=== PATIENT | male | born 1990 | race Caucasian/White ===

== ENCOUNTER 2017-01-14 15:15 | Emergency (ER) | payer MEDICAID, OTHER ==
[~2017-01-14] VITALS: Ht 182.9 cm; Wt 104.3 kg
[~2017-01-14 15:15] MED LIST: AURALGAN OTIC S14 ML OT; BENAZEPRIL HCL5 MG PO; CORTISPORIN EAR10 M1 LEFT EAR; IBUPROFEN600 MG ORAL; NIFEDIPINE20 MG PO; NORCO 5-325 TA1 EACH ORAL; PREVACID30 MG ORAL; PRILOSEC10 M1 ORAL; ZOFRAN4 MG ORAL
[2017-01-14 15:59] VITALS: BP 136/73
[2017-01-14] MEDS ORDERED: Norco 5mg/325mg tab ORAL ONE (16:15)
--- NOTE | 2017-01-14 16:49 | Diagnostic Imaging Report ---
Indication: Neck and back pain, status post fall down stairs Technique: Spiral acquisitions obtained through the thoracic spine. No IV contrast utilized. Multiplanar reconstructions were generated. Total dose length product 1620 mGycm. CTDIvol(s) 37 mGy. Dose reduction achieved using automated exposure control Comparison: None Findings: Bony alignment is normal. No acute fractures. No dislocations. Vertebral body heights are preserved. The disc spaces are preserved. No significant disc bulge or protrusion, spinal stenosis, or neural foraminal stenosis is demonstrated. The included extraspinal soft tissues are unremarkable. Impression: Negative The CT scanner at [facility] is accredited by the [employer] and the scans are performed using protocols designed to limit radiation exposure to as low as reasonably achievable to attain images of sufficient resolution adequate for diagnostic evaluation.
--- NOTE | 2017-01-14 16:55 | Diagnostic Imaging Report ---
Indication: PAIN neck and back pain status post fall down stairs today Technique: Spiral acquisitions obtained through the cervical spine. No IV contrast utilized. Multiplanar reconstructions were generated. Total dose length product 642 mGycm. CTDIvol(s) 27 mGy. Dose reduction achieved using automated exposure control Comparison: None Findings: Bony alignment is normal. Image noise from photon starvation artifact related to body habitus obscures C7 and T1, although these segments are better demonstrated on thoracic spine CT performed at the same time. The bony alignment is normal are the vertebral body heights are preserved. Disc spaces are preserved. No acute fractures. No dislocations. Vertebral body heights are preserved. Disc spaces are preserved. There is mild degenerative remodeling of the C6 vertebral body. No significant disc bulge or protrusion, spinal stenosis, or neural foraminal stenosis. The included extraspinal soft tissues are unremarkable. Impression: No acute bony trauma Minimal degenerative changes, as described The CT scanner at [facility] is accredited by the [employer] and the scans are performed using protocols designed to limit radiation exposure to as low as reasonably achievable to attain images of sufficient resolution adequate for diagnostic evaluation.
[2017-01-14] MEDS ORDERED: IBUPROFEN600 MG ORAL (17:25)
[2017-01-14] MEDS ORDERED: Morphine Sulfate 4mg/ml Inj IM ONE (17:30)
[2017-01-14 17:45] VITALS: BP 136/73
--- NOTE | 2017-01-14 19:46 | Emergency Room Report ---
History of Present Illness General Chief Complaint: Back Injury Source: Patient Present Illness HPI The patient is a 26-year-old male presenting for back pain after he states he fell down the stairs today. He states that he slipped and fell directly onto the mid back. He is now expressing a 10 out of 10 dull ache to the neck and mid back. Worse with movement. He denies any numbness or tingling. He denies any other symptoms including LOC, N, V, ROJAS, dizziness Allergies: Coded Allergies: Dust (Verified Allergy, Mild, Itching, 01/14/17) IBUPROFEN (Verified Allergy, Unknown, 01/14/17) Patient History Past Medical History: see triage record Pertinent Family History: none Reviewed Nursing Documentation: PMH: Agreed, PSxH: Agreed Nursing Documentation-PMH Past Medical History: No History, Except For Hx Hypertension: Yes Hx Gastrointestinal Problems: Yes - GASTRIC BYPASS (2012) Review of Systems All Other Systems: negative except mentioned in HPI Physical Exam Vital Signs Date Time Temp Pulse Resp B/P (MAP) Pulse Ox O2 Delivery O2 Flow Rate FiO2 01/14/17 15:59 97.7 109 16 136/73 96 Room Air Sp02 EP Interpretation: reviewed, normal General Appearance: no apparent distress, alert, GCS 15, non-toxic Head: normocephalic, atraumatic Eyes: bilateral eye normal inspection, bilateral eye PERRL ENT: hearing grossly normal, normal pharynx, no angioedema, normal voice Neck: full range of motion, supple/symm/no masses, tender lateral, tender midline Respiratory: chest non-tender, lungs clear, normal breath sounds, speaking full sentences Cardiovascular #1: regular rate, rhythm, no edema Musculoskeletal: back normal, gait/station normal, normal range of motion, tender - Midline T spine. No step-offs Neurologic: alert, oriented x3, responsive, motor strength/tone normal, sensory intact, speech normal Psychiatric: judgement/insight normal, memory normal, mood/affect normal, no suicidal/homicidal ideation Skin: normal color, no rash, warm/dry, well hydrated Medical Decision Making PA Attestation Dr. Aguilar is my supervising physician. Patient management was discussed with my supervising physician Diagnostic Impression: Primary Impression: Back pain Qualified Codes: M54.9 - Dorsalgia, unspecified ER Course The patient is a 26-year-old male presenting for back pain after he states he fell down the stairs Differential diagnoses considered but not limited to:Muscle strain, disc herniation, fracture PE: NAD TTP over midline C and T spine. No step-offs. Normal gait CT scan of C and T spine unremarkable. CURES shows patient has received 80 narcotic pain medications this month. He is given pain medication in the ER and WA'ed home. he needs to see pain management. CT/MRI/US Diagnostic Results CT/MRI/US Diagnostic Results #1: Imaging Test Ordered: CT C SPINE Impression Unremarkable CT/MRI/US Diagnostic Results #2: Imaging Test Ordered: CT T SPINE Impression Unremarkable Last Vital Signs Date Time Temp Pulse Resp B/P (MAP) Pulse Ox O2 Delivery O2 Flow Rate FiO2 01/14/17 17:45 97.7 101 20 136/73 99 Room Air Status: improved Disposition: HOME, SELF-CARE Condition: Improved Scripts Ibuprofen* (MOTRIN*) 600 Mg Tablet 600 MG ORAL Q8H Y for For Pain, #30 TAB 0 Refills Prov: POLO CORDERO 01/14/17 Patient Instructions: Back Pain, Adult Additional Instructions: I discussed my findings with the patient. All questions and concerns have been answered. Treatment and medication compliance have been addressed. I advised the patient that they need to follow up with PMD in 3-5 days. Return to ED if symptoms worsen, new symptoms arise, or if needed for any reason. Patient verbalized understanding of discharge instructions. POLO CORDERO Jan 14, 2017 19:46
== END 2017-01-14 17:45 | disposition home or self-care (01) ==
LOC: EMR 16:00
DX: M54.9 Dorsalgia, unspecified (principal); I10 Essential (primary) hypertension; Z98.84 Bariatric surgery status; Z88.6 Allergy status to analgesic agent; Z91.048 Other nonmedicinal substance allergy status
CPT/HCPCS: 72125; 72128; 96372; 99284; J2270

== ENCOUNTER 2017-03-12 20:26 | Emergency (ER) | payer BC, MEDICAID ==
[~2017-03-12] VITALS: Ht 182.9 cm; Wt 104.3 kg
[2017-03-12 21:12] VITALS: BP 136/64
[2017-03-12 21:16] LABS: MEAN CORPUSCULAR HEMOGLOBIN 29.2 PG (27.0-31.0); MEAN CORPUSCULAR HGB CONC 31.2 G/DL (32.0-36.0); MEAN CORPUSCULAR VOLUME 93 FL (80-99); MEAN PLATELET VOLUME 6.9 FL (6.5-10.1); PLATELET COUNT 265 K/UL (150-450); RED BLOOD COUNT 5.23 M/UL (4.70-6.10); RED CELL DISTRIBUTION WIDTH 11.7 % (11.6-14.8)
[2017-03-12 21:30] LABS: ANION GAP 9 mmol/L (5-15); CALCIUM 8.1 MG/DL (8.5-10.1); CARBON DIOXIDE 29 MMOL/L (21-32); CHLORIDE 104 MMOL/L (98-107); CREATININE 0.9 MG/DL (0.55-1.30); GLOMERULAR FILTRATION RATE > 60 mL/min (>60); POTASSIUM 4.6 MMOL/L (3.5-5.1); SODIUM 142 MMOL/L (136-145)
[2017-03-12 21:42] LABS: ACETAMINOPHEN < 2 MCG/ML (10-30); ALANINE AMINOTRANSFERASE 61 U/L (12-78); ALBUMIN/GLOBULIN RATIO 1.1 (1.0-2.7); ALCOHOL 422 mg/dL; ASPARTATE AMINO TRANSFERASE 38 U/L (15-37); TOTAL PROTEIN 8.5 G/DL (6.4-8.2)
--- NOTE | 2017-03-12 21:50 | Emergency Room Report ---
History of Present Illness General Chief Complaint: General Complaint Source: Patient, Family Member Present Illness HPI 26-year-old male brought to ER for alcohol intoxication and suicidal ideation mOther states he has been seeing psychiatrist for 2 years - on clonazepam, Ambien, and Paxil for psychiatric problems has psychiatric followup tomorrow Drank 4 bottles of wine today, no other drug use Has intermittently expressed SI for last 2 years However today, speaking of magic spells being cast on his family, neighbors, springled salt around the house HPI otherwise limited d/t intox Allergies: Coded Allergies: Dust (Verified Allergy, Mild, Itching, 01/14/17) IBUPROFEN (Verified Allergy, Unknown, 01/14/17) Patient History Past Medical History: HTN Past Surgical History: other - gastric bypass, PUD Pertinent Family History: none Social History: Denies: smoking, alcohol use, drug use Immunizations: UTD Reviewed Nursing Documentation: PMH: Agreed, PSxH: Agreed Nursing Documentation-PMH Hx Hypertension: Yes Hx Gastrointestinal Problems: Yes - GASTRIC BYPASS (2012) History Of Psychiatric Problem: Yes - ADHD Review of Systems All Other Systems: negative except mentioned in HPI Physical Exam Vital Signs Date Time Temp Pulse Resp B/P (MAP) Pulse Ox O2 Delivery O2 Flow Rate FiO2 03/12/17 20:20 98.2 94 14 153/84 96 Room Air Sp02 EP Interpretation: reviewed, normal General Appearance: normal inspection, well appearing, no apparent distress, alert, GCS 15, non-toxic, obese, other - +AOB Head: normocephalic, atraumatic Eyes: bilateral eye PERRL, bilateral eye EOMI ENT: normal ENT inspection, hearing grossly normal, normal pharynx, no angioedema, normal voice, TMs + canals normal, uvula midline, moist mucus membranes Neck: normal inspection, full range of motion, supple, thyroid normal, no meningismus, no bony tend Respiratory: normal inspection, lungs clear, normal breath sounds, no rhonchi, no respiratory distress, no retraction, no accessory muscle use, no wheezing, speaking full sentences Cardiovascular #1: regular rate, rhythm, no edema, no JVD, normal capillary refill Gastrointestinal: normal inspection, normal bowel sounds, non tender, soft, no mass, no peritonitis, non-distended, no guarding, no hernia, no pulsatile mass Genitourinary: no CVA tenderness Musculoskeletal: normal inspection, back normal, normal range of motion, no calf tenderness, pelvis stable, Jessica's Sign negative Neurologic: normal inspection, alert, oriented x3, responsive, retirement assistant III-XII nml as tested, motor strength/tone normal, cerebellar normal, normal gait, speech normal Psychiatric: normal inspection, judgement/insight normal, mood/affect normal, no suicidal/homicidal ideation, no delusions Skin: normal inspection, normal color, no rash Lymphatic: normal inspection, no adenopathy Medical Decision Making Diagnostic Impression: Primary Impression: Alcohol abuse Additional Impression: Suicidal ideation ER Course 26-year-old male with alcohol intoxication and suicidal ideation Alcohol level very high No other metabolic abnormalities he denies SI, HI, AVH now Is medically cleared However we cannot start PET transfer until ETOH level is lower - will repeat in AM Patient is on 5150 hold and will need PET or Psych eval Last Vital Signs Date Time Temp Pulse Resp B/P (MAP) Pulse Ox O2 Delivery O2 Flow Rate FiO2 03/12/17 21:12 98.2 99 14 136/64 96 Room Air Status: improved Referrals: NOT CHOSEN IPA/,REFERRING (PCP) TAMARA SINHA M.D. Mar 12, 2017 21:50
[2017-03-12 22:45] LABS: BAND NEUTROPHILS % (MANUAL) 0 % (0-8); BASOPHILS % (MANUAL) 2 % (0-2); EOSINOPHILS % (MANUAL) 0 % (0-3); LYMPHOCYTES % (MANUAL) 60 % (20-45); NEUTROPHILS % (MANUAL) 31 % (45-75); PLATELET ESTIMATE ADEQUATE; TOTAL CELLS COUNTED 100
[2017-03-12 22:47] LABS: REACTIVE LYMPHOCYTES 2+
[2017-03-12 22:48] LABS: PLATELET MORPHOLOGY NORMAL
[2017-03-12 23:12] VITALS: BP 144/70
[2017-03-13 01:12] VITALS: BP 149/77
[2017-03-13 03:12] VITALS: BP 148/65
[2017-03-13 05:12] VITALS: BP 144/61
[2017-03-13 07:12] VITALS: BP 147/70
[2017-03-13] MEDS ORDERED: ADALAT10 MG ORAL (07:58)
[2017-03-13] MEDS ORDERED: AMBIEN5 MG ORAL (07:58)
[2017-03-13] MEDS ORDERED: BENAZEPRIL HCL20 MG ORAL (07:58)
[2017-03-13] MEDS ORDERED: CLONAZEPAM0.5 M1 PO (07:58)
[2017-03-13 08:00] VITALS: BP 158/105
[2017-03-13] MEDS ORDERED: Acetaminophen 500mg (ES) tab ORAL ONE (08:15)
[2017-03-13] MEDS ORDERED: Benazepril 10mg tab ORAL SCH (09:00)
[2017-03-13] MEDS ORDERED: Norco 5mg/325mg tab ORAL ONE (13:30)
[2017-03-13] MEDS ORDERED: AMOXICILLIN500 MG ORAL (13:33)
[2017-03-13 14:00] VITALS: BP 155/96
== END 2017-03-13 14:00 ==
LOC: EDBD 20:26 → EMR 21:00
DX: R45.851 Suicidal ideations (principal); F90.9 Attention-deficit hyperactivity disorder, unspecified type; I10 Essential (primary) hypertension; Z79.899 Other long term (current) drug therapy; Z88.6 Allergy status to analgesic agent
CPT/HCPCS: 36415; 80053; 80307; 85007; 85025; 96360; 99284; G0480; 80329; J8499

== ENCOUNTER 2018-02-06 00:12 | Emergency (ER) | payer BC, MEDICAID ==
[~2018-02-06] VITALS: Ht 182.9 cm; Wt 127.0 kg
[~2018-02-06 00:12] MED LIST changes: +ADALAT10 MG ORAL; +AMBIEN5 MG ORAL; +AMOXICILLIN500 MG ORAL; +BENAZEPRIL HCL20 MG ORAL; +BENAZEPRIL HCL5 MG ORAL; +CLONAZEPAM0.5 M1 PO
[2018-02-06 00:15] VITALS: BP 150/77
[2018-02-06 01:04] LABS: BASOPHILS % (AUTO) 1.5 % (0.0-2.0); EOSINOPHILS % (AUTO) 0.3 % (0.0-3.0); HEMATOCRIT 43.7 % (42.0-52.0); HEMOGLOBIN 15.1 G/DL (14.2-18.0); LYMPHOCYTES % (AUTO) 39.6 % (20.0-45.0); MEAN CORPUSCULAR VOLUME 86 FL (80-99); NEUTROPHILS % (AUTO) 51.7 % (45.0-75.0); PLATELET COUNT 217 K/UL (150-450); RED BLOOD COUNT 5.09 M/UL (4.70-6.10); RED CELL DISTRIBUTION WIDTH 11.7 % (11.6-14.8); WHITE BLOOD COUNT 6.5 K/UL (4.8-10.8)
[2018-02-06 01:06] LABS: ANION GAP 12 mmol/L (5-15); BLOOD UREA NITROGEN 8 mg/dL (7-18); CALCIUM 8.9 MG/DL (8.5-10.1); CARBON DIOXIDE 24 MMOL/L (21-32); CHLORIDE 106 MMOL/L (98-107); CREATININE 0.9 MG/DL (0.55-1.30); POTASSIUM 3.8 MMOL/L (3.5-5.1); SODIUM 141 MMOL/L (136-145)
[2018-02-06 01:10] LABS: ALANINE AMINOTRANSFERASE 22 U/L (12-78); ALBUMIN 4.5 G/DL (3.4-5.0); ALKALINE PHOSPHATASE 117 U/L (46-116); ASPARTATE AMINO TRANSFERASE 16 U/L (15-37); BILIRUBIN,TOTAL 0.4 MG/DL (0.2-1.0)
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
[2018-02-06] MEDS ORDERED: Zolpidem 5mg tab ORAL ONE (03:00)
[2018-02-06 04:06] VITALS: BP 148/74
[2018-02-06 06:35] VITALS: BP 131/60
[2018-02-06 08:54] VITALS: BP 126/51
[2018-02-06] MEDS ORDERED: Ketorolac 60mg Inj IM ONE (11:00)
--- NOTE | 2018-02-06 11:02 | Diagnostic Imaging Report ---
Indication: Headache, head trauma, altered mental status Technique: Continuous helical CT scanning of the head was performed without intravenous contrast material. Axial and coronal 5 mm sections were generated. Radiation dose was minimized using automated exposure control Dose: Total Dose Length Product - DLP 1376.[address] Dose Index - CTDIvol(s) 70.38 mGy. Comparison: 09/22/2013 Findings: The ventricular system is normal in size and configuration. There is no shift of midline structures. No abnormal extra-axial fluid collections are noted. There is no evidence of intracerebral bleeding. No other abnormal high or low density areas are noted within the brain. . Hill-white differentiation is normal. The visualized orbits and sinuses are unremarkable. The mastoids are clear. The calvarium is intact. There is no significant interim change. Impression: Normal CT scan of the head without contrast material. The CT scanner at [facility] is accredited by the [employer] and the scans are performed using protocols designed to limit radiation exposure to as low as reasonably achievable to attain images of sufficient resolution adequate for diagnostic evaluation.
[2018-02-06 11:25] VITALS: BP 126/51
[2018-02-06 11:35] VITALS: BP 114/69
== END 2018-02-06 12:00 | disposition home or self-care (01) ==
LOC: EDBD 00:12 → EMR 00:51
DX: Z02.89 Encounter for other administrative examinations (principal); R46.89 Other symptoms and signs involving appearance and behavior; I10 Essential (primary) hypertension; F32.9 Major depressive disorder, single episode, unspecified; Z98.84 Bariatric surgery status
CPT/HCPCS: 36415; 70450; 80053; 80307; 85025; 96372; 99285; G0480; 80329